=== PATIENT | male | born 1975 | race Two or more races ===

== ENCOUNTER 2025-04-22 03:07 | Inpatient (IN) | payer OTHER ==
[~2025-04-22] VITALS: Ht 175.3 cm; Wt 90.9 kg
[2025-04-22 04:33] LABS: PLATELET COUNT (AUTO) 200 K/uL (150-450); RED BLOOD CELL COUNT(AUTO) 4.48 MIL/uL (4.50-5.90); RED CELL DISTRIBUTION WIDTH 13.0 % (11.5-14.5); WHITE BLOOD COUNT (AUTO) 6.6 K/uL (4.5-11.0)
[2025-04-22 04:45] LABS: CALCIUM, TOTAL 7.8 mg/dL (8.8-10.5); CREATININE 0.91 mg/dL (0.60-1.30); GLOMERULAR FILTR. RATE CALC > 60 mL/min (>60); GLUCOSE,RANDOM 100 mg/dL (70-110); SODIUM SERUM 138 mmol/L (136-145); UREA NITROGEN, BLOOD 11 mg/dL (7-18)
[2025-04-22] MEDS: MORPHINE SULFATE 4 MG/ML SYRINGE IVP ONE (04:47)
[2025-04-22] MEDS: CefTRIAXone 1 GM/DEXTROSE 50 ML IV ONE (06:11)
[2025-04-22 06:26] LABS: APPEARANCE,URINE CLEAR (CLEAR); GLUCOSE, URINE (UA) NEGATIVE (NEGATIVE); LEUKOCYTE ESTERASE ,URINE LARGE (NEGATIVE); NITRATE,URINE NEGATIVE (NEGATIVE); OCCULT BLOOD,URINE SMALL (NEGATIVE); SPECIFIC GRAVITIY, URINE 1.014 (1.003-1.030)
[2025-04-22] MEDS ORDERED: ACETAMINOPHEN 325 MG TABLET PO PRN (06:30)
[2025-04-22] MEDS ORDERED: MAGNESIUM HYDROXIDE SUSPENSION 30 ML UDCUP PO PRN (06:30)
[2025-04-22] MEDS ORDERED: ZOLPIDEM TARTRATE 5 MG TABLET PO PRN (06:30)
[2025-04-22] MEDS ORDERED: ONDANSETRON HCL 4 MG/2 ML VIAL IVP PRN (06:30)
[2025-04-22] MEDS ORDERED: BISACODYL 10 MG RECTAL RECTAL SUPPOSITORY PR PRN (06:30)
[2025-04-22] MEDS: HEPARIN SODIUM,PORCINE 5,000 UNITS/ML VIAL SQ SCH (07:33)
[2025-04-22] MEDS: DOCUSATE SODIUM 100 MG CAPSULE PO SCH (07:35)
[2025-04-22] MEDS: PANTOPRAZOLE SODIUM 40 MG DR TABLET PO SCH (07:35)
[2025-04-22] MEDS: MORPHINE SULFATE 2 MG/ML SYRINGE IVP PRN (08:07)
[2025-04-22 09:40] VITALS: BP 138/89; PULSE 79; RESP 18; TEMP 97.9; O2SAT 98
[2025-04-22] MEDS: HYDROCODONE/ACETAMINOPHEN 5-325 MG TABLET PO PRN (13:27)
[2025-04-22 14:46] VITALS: BP 140/97; PULSE 83; RESP 18; O2SAT 99
[2025-04-22 20:05] VITALS: BP 130/76; PULSE 72; RESP 18; TEMP 98.1; O2SAT 96
[2025-04-22] MEDS: POTASSIUM CHLORIDE 20 MEQ ER TABLET PO ONE (23:26)
[2025-04-23 04:50] VITALS: BP 123/62; PULSE 65; RESP 18; TEMP 97.5; O2SAT 95
[2025-04-23] MEDS ORDERED: SODIUM CHLORIDE 0.9% 250 ML IV ONE (05:25)
[2025-04-23] MEDS: CefTRIAXone 1 GM/DEXTROSE 50 ML IV ONE (05:36)
[2025-04-23 06:09] LABS: PLATELET COUNT (AUTO) 183 K/uL (150-450); RED BLOOD CELL COUNT(AUTO) 4.87 MIL/uL (4.50-5.90); RED CELL DISTRIBUTION WIDTH 13.3 % (11.5-14.5); WHITE BLOOD COUNT (AUTO) 5.7 K/uL (4.5-11.0)
[2025-04-23 07:06] LABS: CALCIUM, TOTAL 8.3 mg/dL (8.8-10.5); CREATININE 0.83 mg/dL (0.60-1.30); GLOMERULAR FILTR. RATE CALC > 60 mL/min (>60); GLUCOSE,RANDOM 84 mg/dL (70-110); SODIUM SERUM 138 mmol/L (136-145); UREA NITROGEN, BLOOD 12 mg/dL (7-18)
[2025-04-23 08:08] VITALS: BP 105/77; PULSE 72; RESP 18; TEMP 97.5; O2SAT 95
== END 2025-04-23 19:14 | DRG 730 ==
LOC: EMS 03:07 → EDH 05:36 → 6S 09:09 → 6N 20:44
PROVIDERS: ADMIT Internal Medicine; ATTEND Internal Medicine
DX: T19.4XXA Foreign body in penis, initial encounter (principal); E87.6 Hypokalemia; W44.8XXA Other foreign body entering into or through a natural orifice, initial encounter; D64.9 Anemia, unspecified; I10 Essential (primary) hypertension; F32.A Depression, unspecified; Z88.8 Allergy status to other drugs, medicaments and biological substances; Z79.899 Other long term (current) drug therapy
CPT/HCPCS: 80048; 81001; 85025; 85610; 87086; 96374; 99285; J0696; J1644; J2270; J7050